=== PATIENT | male | born 1975 | race African-American/Black ===

== ENCOUNTER 2022-07-13 21:12 | Emergency (ER) | payer MEDICAID ==
[~2022-07-13] VITALS: Ht 165.1 cm; Wt 75.0 kg
[~2022-07-13 21:12] MED LIST: BUPR75TA3 PO; QUET50TA PO; VENL-179 PO
[2022-07-13 21:58] VITALS: BP 160/70
[2022-07-14] MEDS ORDERED: PHENYTOIN SODIUM EXTENDED 100MG CAPSULE PO ONE (06:30)
[2022-07-14 07:02] LABS: BASOPHILS % 0.5 % (0.0-2.0); CHLORIDE 103 mEq/L (98-107); EOSINOPHILS % 6.3 % (0.0-5.0); HEMATOCRIT. 37.6 % (42.0-52.0); HEMOGLOBIN. 12.2 g/dL (14.0-18.0); LYMPHOCYTES % 45.2 % (20.0-50.0); MEAN CORPUSCULAR VOLUME 86.9 fL (80.0-94.0); MEAN PLATELET VOLUME 7.1 fl (7.4-10.4); MONOCYTES % 13.2 % (2.0-8.0); NEUTROPHILS % 34.8 % (40.0-76.0); PLATELET 414 x1000/uL (130-400); RED BLOOD CELL COUNT 4.33 mill/uL (4.7-6.1)
== END 2022-07-14 07:07 | disposition left against medical advice (07) ==
LOC: ER 21:31
DX: Z13.9 Encounter for screening, unspecified (principal); F14.10 Cocaine abuse, uncomplicated; F15.10 Other stimulant abuse, uncomplicated; Z76.0 Encounter for issue of repeat prescription; Z86.59 Personal history of other mental and behavioral disorders
CPT/HCPCS: 36415; 80053; 80185; 85025; 99283

== ENCOUNTER 2023-01-06 23:15 | Emergency (ER) | payer MEDICAID ==
[~2023-01-06] VITALS: Ht 170.2 cm; Wt 69.0 kg
[~2023-01-06 23:15] MED LIST changes: +ALUM1POW3 MC; +ARIP15TA2 MT; +BUSP10TA4 MT; +QUET100T MT; +TERB30CR8 TP
[2023-01-06 23:18] VITALS: BP 136/80; PULSE 80; RESP 16; TEMP 98.5; O2SAT 98
[2023-01-07] MEDS ORDERED: ACETAMINOPHEN 500MG TABLET PO ONE
[2023-01-07] MEDS ORDERED: ONDANSETRON 4MG ODT PO ONE
[2023-01-07 00:24] LABS: BASOPHILS % 0.8 % (0.0-2.0); EOSINOPHILS % 7.4 % (0.0-5.0); HEMATOCRIT. 35.5 % (42.0-52.0); HEMOGLOBIN. 11.8 g/dL (14.0-18.0); LYMPHOCYTES % 34.7 % (20.0-50.0); MEAN CORPUSCULAR HEMOGLOBIN 28.5 pg (28.0-32.0); MEAN CORPUSCULAR HGB CONC 33.3 g/dL (31.0-37.0); MEAN CORPUSCULAR VOLUME 85.6 fL (80.0-94.0); MEAN PLATELET VOLUME 6.6 fl (7.4-10.4); MONOCYTES % 12.8 % (2.0-8.0); NEUTROPHILS % 44.3 % (40.0-76.0); PLATELET 333 x1000/uL (130-400); RED BLOOD CELL COUNT 4.15 mill/uL (4.7-6.1); RED CELL DISTRIBUTION WIDTH 18.4 % (11.6-14.6); WHITE BLOOD COUNT 4.9 x1000/uL (4.5-11.0)
[2023-01-07 00:39] LABS: ALANINE AMINOTRANSFERASE 23 IU/L (13-61); ALBUMIN 2.9 g/dL (3.4-5.0); ASPARTATE AMINOTRANSFERASE 31 IU/L (15-37); BILIRUBIN TOTAL 0.3 mg/dL (0.1-1.0); CALCIUM 8.6 mg/dL (8.5-10.1); CARBON DIOXIDE 28 mEq/L (21-32); CREATININE 0.9 mg/dL (0.6-1.3); GLUCOSE 103 mg/dL (70-105); UREA NITROGEN BLOOD 11 mg/dL (7-21)
[2023-01-07 01:10] LABS: POTASSIUM 3.3 mEq/L (3.5-5.1); SODIUM 138 mEq/L (136-145)
[2023-01-07 01:11] LABS: CHLORIDE 105 mEq/L (98-107)
[2023-01-07] MEDS ORDERED: POTASSIUM CHLORIDE 20MEQ TABLET SR PO ONE (01:30)
[2023-01-07] MEDS ORDERED: ONDANSETRON 4MG ODT PO NR (01:45)
[2023-01-07] MEDS ORDERED: ACETAMINOPHEN 500MG TABLET PO NR (01:45)
[2023-01-07 02:52] LABS: CLARITY URINE CLEAR (CLEAR); COLOR URINE YELLOW (YELLOW)
[2023-01-07 02:53] LABS: GLUCOSE URINE NEGATIVE (NEGATIVE); KETONES URINE NEGATIVE (NEGATIVE); PH URINE 5.5 (4.5-8.0); PROTEIN URINE TRACE (NEGATIVE); SPECIFIC GRAVITY URINE >1.030 (1.005-1.030)
[2023-01-07 02:54] LABS: LEUKOCYTE ESTERASE URINE NEGATIVE (NEGATIVE); NITRITE URINE NEGATIVE (NEGATIVE); OCCULT BLOOD URINE 1+ (NEGATIVE)
[2023-01-07 03:05] LABS: RBC URINE 0-2 /hpf (0-2); WBC URINE 0-2 /hpf (0-2)
[2023-01-07 03:06] LABS: BACTERIA URINE NONE SEEN; SQUAMOUS EPITHELIAL CELL URINE NONE SEEN /lpf (RARE/1+)
[2023-01-07] MEDS ORDERED: ACET-2708 MT (03:07)
== END 2023-01-07 03:32 | disposition home or self-care (01) ==
LOC: ER 23:15
DX: R11.2 Nausea with vomiting, unspecified (principal); R30.0 Dysuria; M79.671 Pain in right foot; M79.672 Pain in left foot; F20.9 Schizophrenia, unspecified; F14.10 Cocaine abuse, uncomplicated; F15.10 Other stimulant abuse, uncomplicated; Z88.0 Allergy status to penicillin
CPT/HCPCS: 99284; 71045; 36415; 80053; 81003; 83690; 85025; Q0162

== ENCOUNTER 2024-08-26 12:59 | Emergency (ER) | payer MEDICAID ==
[~2024-08-26] VITALS: Ht 172.7 cm; Wt 73.0 kg
[~2024-08-26 12:59] MED LIST changes: +ACET-2708 MT
[2024-08-26 13:00] VITALS: O2SAT 99
[2024-08-26 13:26] VITALS: BP 144/82; PULSE 93; RESP 16; TEMP 37.1; O2SAT 100
[2024-08-26] MEDS: ARIPIPRAZOLE 5MG TABLET PO ONE (13:38)
[2024-08-26 14:10] LABS: CLARITY URINE CLEAR (CLEAR); COLOR URINE YELLOW (YELLOW); GLUCOSE URINE NEGATIVE (NEGATIVE); KETONES URINE 1+ (NEGATIVE); LEUKOCYTE ESTERASE URINE TRACE (NEGATIVE); NITRITE URINE NEGATIVE (NEGATIVE); OCCULT BLOOD URINE NEGATIVE (NEGATIVE); PH URINE 6.5 (4.5-8.0); PROTEIN URINE 1+ (NEGATIVE)
[2024-08-26 14:12] LABS: HEMATOCRIT. 40.8 % (42.0-52.0); HEMOGLOBIN. 13.2 g/dL (14.0-18.0); MEAN CORPUSCULAR HEMOGLOBIN 28.7 pg (28.0-32.0); MEAN CORPUSCULAR HGB CONC 32.5 g/dL (31.0-37.0); MEAN CORPUSCULAR VOLUME 88.4 fL (80.0-94.0); MEAN PLATELET VOLUME 7.2 fl (7.4-10.4); PLATELET 304 x1000/uL (130-400); RED BLOOD CELL COUNT 4.61 mill/uL (4.7-6.1); RED CELL DISTRIBUTION WIDTH 16.6 % (11.6-14.6); WHITE BLOOD COUNT 10.8 x1000/uL (4.5-11.0)
[2024-08-26 14:24] LABS: CHLORIDE 104 mEq/L (98-107); SODIUM 137 mEq/L (136-145)
[2024-08-26 14:25] LABS: CALCIUM 9.8 mg/dL (8.7-10.4); CARBON DIOXIDE 26 mEq/L (21-32)
[2024-08-26 14:30] LABS: ETHANOL BLOOD < 10 mg/dL (<10); GLUCOSE 106 mg/dL (70-105); UREA NITROGEN BLOOD 12 mg/dL (9-23)
[2024-08-26 14:32] LABS: ACETAMINOPHEN < 2 ug/mL (10-30)
[2024-08-26 14:33] LABS: *AMPHETAMINES SCREEN URINE PRESUMPTIVE POSITIVE (NEGATIVE); *BARBITURATES SCREEN URINE NEGATIVE (NEGATIVE); *BENZODIAZEPINES SCREEN URINE NEGATIVE (NEGATIVE); *COCAINE SCREEN URINE NEGATIVE (NEGATIVE)
[2024-08-26 14:34] LABS: CANNABINOID URINE SCREEN NEGATIVE (NEGATIVE); ECSTASY MDMA SCREEN URINE CONF.TEST INDICATED (NEGATIVE); METHADONE URINE SCREEN NEGATIVE (NEGATIVE); OPIATES URINE SCREEN NEGATIVE (NEGATIVE); PHENCYCLIDINE URINE SCREEN NEGATIVE (NEGATIVE)
[2024-08-26 14:59] LABS: DIFFERENTIAL COMMENT 1
[2024-08-26 15:42] LABS: BACTERIA URINE NONE SEEN; RBC URINE NONE SEEN /hpf (0-2); SQUAMOUS EPITHELIAL CELL URINE NONE SEEN /lpf (RARE/1+); WBC URINE 0-2 /hpf (0-2)
[2024-08-26 16:07] LABS: PLATELET ESTIMATE NORMAL
[2024-08-26] MEDS ORDERED: BUSPIRONE HCL 10MG TABLET PO SCH (21:00)
[2024-08-26] MEDS ORDERED: QUETIAPINE FUMARATE 50MG TABLET PO SCH (21:00)
== END 2024-08-26 14:27 | disposition home or self-care (01) ==
LOC: ER 12:59
DX: F22 Delusional disorders (principal); F20.9 Schizophrenia, unspecified; F15.10 Other stimulant abuse, uncomplicated; F32.A Depression, unspecified; Z79.899 Other long term (current) drug therapy; Z88.0 Allergy status to penicillin; Z88.6 Allergy status to analgesic agent
CPT/HCPCS: 36415; 80048; 80305; 80307; 80320; 80329; 81003; 85025; 99283; G0480

== ENCOUNTER 2025-04-03 15:46 | Emergency (ER) | payer MEDICAID ==
[~2025-04-03] VITALS: Ht 165.1 cm; Wt 59.0 kg
[2025-04-03 15:47] VITALS: TEMP 98.4; O2SAT 96
[2025-04-03] MEDS ORDERED: SODIUM CHLORIDE 0.9% 1,000 ML IV ONE (16:00)
[2025-04-03] MEDS ORDERED: ACETAMINOPHEN 500MG TABLET PO ONE (16:00)
[2025-04-03 16:18] VITALS: BP 112/69; PULSE 91; RESP 16; O2SAT 97
[2025-04-03 16:34] LABS: BASOPHILS % 0.4 % (0.0-2.0); EOSINOPHILS % 1.2 % (0.0-5.0); HEMATOCRIT. 38.1 % (42.0-52.0); HEMOGLOBIN. 12.5 g/dL (14.0-18.0); LYMPHOCYTES % 25.2 % (20.0-50.0); MEAN PLATELET VOLUME 7.5 fl (7.4-10.4); MONOCYTES % 7.5 % (2.0-8.0); NEUTROPHILS % 65.7 % (40.0-76.0); PLATELET 289 x1000/uL (130-400); RED BLOOD CELL COUNT 4.26 mill/uL (4.7-6.1); RED CELL DISTRIBUTION WIDTH 15.5 % (11.6-14.6)
[2025-04-03 16:47] LABS: CREATININE 1.1 mg/dL (0.6-1.3)
[2025-04-03 16:48] LABS: UREA NITROGEN BLOOD 8 mg/dL (9-23)
[2025-04-03 16:49] LABS: ASPARTATE AMINOTRANSFERASE 21 IU/L (<34); TROPONIN I HIGH SENSITIVITY 4 ng/L (3.0-53); TROPONIN I HIGH SENSITIVITY < 4 ng/L (3.0-53)
[2025-04-03 16:50] LABS: BILIRUBIN DIRECT 0.2 mg/dL (<=3.0); BILIRUBIN TOTAL 0.7 mg/dL (0.1-1.0); PROTEIN TOTAL 7.1 g/dL (6.0-8.3)
[2025-04-03] MEDS ORDERED: POTASSIUM CHLORIDE 20MEQ/PACKET PO ONE (17:30)
[2025-04-03] MEDS ORDERED: MAGNESIUM 2 G PREMIX 50 ML IV ONE (17:30)
== END 2025-04-03 20:30 | disposition home or self-care (01) ==
LOC: ER 15:46 → CMPBEDREQ 04-04 07:35
DX: M70.20 Olecranon bursitis, unspecified elbow (principal); R07.9 Chest pain, unspecified; F20.9 Schizophrenia, unspecified; R06.02 Shortness of breath; Z88.0 Allergy status to penicillin; Z88.5 Allergy status to narcotic agent; Z88.6 Allergy status to analgesic agent; Z79.899 Other long term (current) drug therapy
CPT/HCPCS: 99285; 71045; 80076; 80048; 83880; 83735; 85025; 84484; 36415; 73080; 93005; J7030